=== PATIENT | male | born 1960 | race Caucasian/White ===

== ENCOUNTER 2023-10-08 19:17 | Outpatient (CLI) | payer OTHER, SELFPAY | END 2023-10-08 19:18 | disposition home or self-care (01) | LOC: AMB 10-25 23:09 | PROVIDERS: PCP Family Medicine; Visit Provider Emergency Medicine | DX: R07.89 Other chest pain (principal); R41.82 Altered mental status, unspecified; R47.81 Slurred speech; S50.312A Abrasion of left elbow, initial encounter; S80.212A Abrasion, left knee, initial encounter; S90.512A Abrasion, left ankle, initial encounter; Y04.0XXA Assault by unarmed brawl or fight, initial encounter; Y92.009 Unspecified place in unspecified non-institutional (private) residence as the place of occurrence of the external cause | CPT/HCPCS: A0425; A0427 ==

== ENCOUNTER 2024-06-06 20:56 | Outpatient (CLI) | payer OTHER, SELFPAY | END 2024-06-06 20:57 | disposition home or self-care (01) | LOC: AMB 06-26 15:44 | PROVIDERS: PCP Family Medicine; Visit Provider Family Medicine | DX: R42 Dizziness and giddiness (principal); R73.09 Other abnormal glucose | CPT/HCPCS: A0998 ==